=== PATIENT | male | born 1970 | race African-American/Black ===

== ENCOUNTER 2022-01-22 15:42 | Inpatient (IN) | payer SELFPAY ==
[2022-01-22 17:28] LABS: CARBON DIOXIDE,CO2 26.2 mmol/L (21.0-32.0); POTASSIUM,K 4.1 mmol/L (3.5-5.1)
[2022-01-22] MEDS ORDERED: Sodium Chloride 0.9% 1,000 ML IV ONE (17:49)
[2022-01-22] MEDS ORDERED: Albuterol/Ipratropium 3.0-0.5 MG/3 ML Neb Soln NEB PRN (19:00)
[2022-01-22] MEDS ORDERED: Polyethylene Glycol 3350 Powder 17 GM Packet PO PRN (19:00)
[2022-01-22] MEDS ORDERED: Acetaminophen 325 MG Tab PO PRN (19:00)
[2022-01-22] MEDS ORDERED: Ondansetron 4 MG/2 ML SDV IVPUSH PRN (19:00)
[2022-01-22] MEDS ORDERED: cloNIDine 0.1 MG Tab PO PRN ×2 (19:03→22:33)
[2022-01-22] MEDS ORDERED: Glucagon,Human Recombinant 1 MG Vial IM PRN ×2 (19:09→19:17)
[2022-01-22] MEDS ORDERED: 50% Dextrose in Water 50 ML Syringe IVPUSH PRN ×2 (19:09→19:17)
[2022-01-22 19:14] LABS: CORONAVIRUS COVID-19 NAA NEGATIVE (NEGATIVE); INFLUENZA A NAA NEGATIVE (NEGATIVE); INFLUENZA B NAA NEGATIVE (NEGATIVE)
[2022-01-22] MEDS: Enoxaparin 40 MG/0.4 ML Syringe SUBCUT SCH (19:16)
[2022-01-22] MEDS: hydrALAZINE 25 MG Tab PO SCH (23:03)
[2022-01-23] MEDS ORDERED: hydrALAZINE 20 MG/ML SDV IVPUSH PRN (04:19)
[2022-01-23] MEDS: Insulin Aspart 100 Units/ML 3 ML Pen SUBCUT SCH ×3 (06:35→17:54)
[2022-01-23] MEDS: hydrALAZINE 25 MG Tab PO SCH ×3 (06:56→17:57)
[2022-01-23 07:03] LABS: POTASSIUM,K 4.3 mmol/L (3.5-5.1)
[2022-01-23] MEDS ORDERED: Non-Formulary Medication 1 Each (Hydralazine [Apresoline] 100 MG Tablet) PO SCH (07:15)
[2022-01-23] MEDS ORDERED: Insulin Regular, Human 100 Units/ML 10 ML Vial SUBCUT SCH (07:30)
[2022-01-23] MEDS: Isosorbide Dinitrate 10 MG Tab PO SCH ×3 (08:13→21:29)
[2022-01-23] MEDS: Sodium Chloride 0.9% 1,000 ML IV SCH ×2 (10:00→18:11)
[2022-01-23] MEDS: Enoxaparin 40 MG/0.4 ML Syringe SUBCUT SCH (18:00)
[2022-01-23] MEDS ORDERED: atorvaSTATin 40 MG Tab PO SCH (21:00)
[2022-01-24] MEDS: hydrALAZINE 25 MG Tab PO SCH ×2 (00:36→09:47)
[2022-01-24] MEDS: Sodium Chloride 0.9% 1,000 ML IV SCH ×2 (02:23→09:48)
[2022-01-24] MEDS: Isosorbide Dinitrate 10 MG Tab PO SCH (05:13)
[2022-01-24 07:22] LABS: CARBON DIOXIDE,CO2 22.8 mmol/L (21.0-32.0); POTASSIUM,K 3.9 mmol/L (3.5-5.1)
[2022-01-24] MEDS: Insulin Aspart 100 Units/ML 3 ML Pen SUBCUT SCH ×2 (07:34→12:49)
[2022-01-24] MEDS ORDERED: amLODIPine 5 MG Tab PO STA (07:45)
[2022-01-24] MEDS ORDERED: Lisinopril 10 MG Tab PO ONE (10:45)
== END 2022-01-24 12:04 | disposition home or self-care (01) | DRG 305 ==
LOC: MW.ED 15:42 → MW.ICU 18:28 → MW.MS 01-23 18:06
PROVIDERS: ADMIT Internal Medicine; ATTEND Internal Medicine
DX: I16.0 Hypertensive urgency (principal); N17.9 Acute kidney failure, unspecified; I25.10 Atherosclerotic heart disease of native coronary artery without angina pectoris; F17.210 Nicotine dependence, cigarettes, uncomplicated; E11.22 Type 2 diabetes mellitus with diabetic chronic kidney disease; N18.9 Chronic kidney disease, unspecified; Z20.822 Contact with and (suspected) exposure to COVID-19; R45.1 Restlessness and agitation; H54.8 Legal blindness, as defined in USA; I25.2 Old myocardial infarction; Z91.198 Patient's noncompliance with other medical treatment and regimen for other reason; Z79.899 Other long term (current) drug therapy; I69.323 Fluency disorder following cerebral infarction; Z86.19 Personal history of other infectious and parasitic diseases
CPT/HCPCS: 0240U; 36415; 70450; 70450-26; 71045; 71045-26; 76775; 76775-26; 80053; 81001; 82570; 82947; 83735; 84300; 85025; 93005; 96360; 99284-25; A9270-GY; J1650; J7030

== ENCOUNTER 2022-02-04 14:34 | Emergency (ER) | payer SELFPAY | END 2022-02-04 17:55 | disposition home or self-care (01) | LOC: MW.ED 14:34 | DX: Z02.89 Encounter for other administrative examinations (principal); Z79.899 Other long term (current) drug therapy | CPT/HCPCS: 99283 ==

== ENCOUNTER 2022-02-08 22:21 | Emergency (ER) | payer OTHER ==
[2022-02-08] MEDS ORDERED: Metoclopramide 10 MG/2 ML SDV IVPUSH ONE (22:41)
[2022-02-08] MEDS ORDERED: diphenhydrAMINE 50 MG/ML SDV IVPUSH ONE (22:41)
== END 2022-02-08 23:46 ==
LOC: MW.ED 22:21
DX: I10 Essential (primary) hypertension (principal); I25.10 Atherosclerotic heart disease of native coronary artery without angina pectoris; E78.00 Pure hypercholesterolemia, unspecified; E11.9 Type 2 diabetes mellitus without complications; Z79.899 Other long term (current) drug therapy
CPT/HCPCS: 70450; 96374; 96375; 99284; J1200; J2765

== ENCOUNTER 2022-02-12 22:05 | Emergency (ER) | payer OTHER ==
[2022-02-13] MEDS ORDERED: Lisinopril 10 MG Tab PO ONE (01:09)
== END 2022-02-13 01:27 ==
LOC: MW.ED 22:05
DX: I10 Essential (primary) hypertension (principal); I25.2 Old myocardial infarction; I25.10 Atherosclerotic heart disease of native coronary artery without angina pectoris; E78.00 Pure hypercholesterolemia, unspecified; M10.9 Gout, unspecified; E11.9 Type 2 diabetes mellitus without complications; Z79.899 Other long term (current) drug therapy
CPT/HCPCS: 99283; A9270